=== PATIENT | female | born 1985 | race Caucasian/White ===

== ENCOUNTER 2021-11-21 13:59 | Outpatient (CLI) | payer BC ==
--- NOTE | 2021-11-21 15:17 | Ultrasound Report ---
PROCEDURE: Pelvic w/Transvaginal INDICATIONS: EXTENDED BLEEDING TECHNIQUE: Real-time scanning was performed of the pelvic organs, with image documentation. Additional endovagi nal scanning was necessary due to incomplete visualization of the adnexal and endometrial structures by transabdominal scanning. COMPARISON: None. FINDINGS: Transabdominal scanning: Limited scanning through the kidneys shows no hydronephrosis. No pathologi c free abdominal or pelvic fluid. Endovaginal scanning: Uterus: Uterus is prominent in size at 10.5 x 3.0 x 6.5 cm. The endometrium measures 5 mm in combin ed thickness. No soft tissue abnormalities identified within the endometrial cavity. No areas of abno rmal vascularity. Overall, no findings of retained products of conception. Normal uterine echotexture . Retroverted uterus. Ovaries: Right ovary measures 1.6 x 2.9 x 1.2 cm with ovarian volume of 2.9 mL. Left ovary measures 1.3 x 3.1 x 1.4 cm with ovarian volume of 3.0 mm. No suspicious ovarian or adnexal mass lesions. IMPRESSION: Unremarkable sonographic evaluation of the uterus and bilateral ovaries with findings co mpatible with state. No evidence for retained products of conception. Reviewed by: Julio Coleman MD on 11/21/2021 2:15 PM [facility] Approved by: uJlio Coleman MD on 11/21/2021 2:15 PM [facility] Station ID: [id number]
== END 2021-11-21 14:00 | disposition home or self-care (01) ==
LOC: DI 13:59
PROVIDERS: ATTEND Midwife
DX: O72.0 Third-stage hemorrhage (principal)

== ENCOUNTER 2022-08-27 08:00 | Outpatient (CLI) | payer BC ==
[2022-08-27 16:08] LABS: BASOPHILS % (AUTO) 0.4 %; EOSINOPHILS # (AUTO) 0.1 10^3/uL (0.0-0.7); HCT - HEMATOCRIT 38.3 % (37.0-47.0); HGB - HEMOGLOBIN 12.6 g/dL (12.0-16.0); LYMPHOCYTES # (AUTO) 2.3 10^3/uL (1.5-3.5); MEAN CORPUSCULAR HEMOGLOBIN 28.1 pg (27.0-31.0); MEAN CORPUSCULAR HGB CONC 32.9 g/dL (32.0-36.0); MEAN CORPUSCULAR VOLUME 85.3 fL (81.0-99.0); MEAN PLATELET VOLUME 12.4 fL (7.9-10.8); MONOCYTES # (AUTO) 0.4 10^3/uL (0.0-1.0); MONOCYTES % (AUTO) 6.1 %; NEUTROPHILS # (AUTO) 4.1 10^3/uL (1.5-6.6); NEUTROPHILS % (AUTO) 59.4 %; PLT - PLATELET COUNT 186 10^3/uL (130-450); RED BLOOD COUNT 4.49 10^6/uL (4.20-5.40); WHITE BLOOD COUNT 6.9 x10^3/uL (4.8-10.8)
[2022-08-27 16:28] LABS: ALBUMIN 4.2 g/dL (3.2-5.5); ALBUMIN/GLOBULIN RATIO 1.3 (1.0-2.2); ALKALINE PHOSPHATASE 53 IU/L (42-121); ALT ALANINE AMINOTRANSFERASE 11 IU/L (10-60); AST ASPARTATE AMINOTRANSFERASE 13 IU/L (10-42); BILIRUBIN,TOTAL 0.6 mg/dL (0.2-1.0); BUN - BLOOD UREA NITROGEN 19 mg/dL (6-20); CALCIUM 8.9 mg/dL (8.5-10.3); CARBON DIOXIDE - CO2 23 mmol/L (21-32); CHLORIDE 105 mmol/L (101-111); CHOL/HDL RATIO 3.6 (<4.4); CHOLESTEROL 133 mg/dL; CREATININE 0.8 mg/dL (0.4-1.0); GFR - MDRD 81 (>89); GLUCOSE 81 mg/dL (70-100); HDL CHOLESTEROL 37 mg/dL; LDL CHOLESTEROL,CALCULATED 83 mg/dL; LDL/HDL RATIO 2.2 (<4.4); POTASSIUM 4.1 mmol/L (3.5-5.0); SODIUM 138 mmol/L (135-145); TOTAL PROTEIN 7.5 g/dL (6.7-8.2); TRIGLYCERIDES 66 mg/dL; VLDL CHOLESTEROL 13 mg/dL
[2022-08-27 16:36] LABS: THYROID STIMULATING HORMONE 2.35 uIU/mL (0.34-5.60)
== END 2022-08-27 23:59 | disposition home or self-care (01) ==
LOC: LAB.R 08:00
PROVIDERS: ATTEND Internal Medicine
DX: R68.89 Other general symptoms and signs (principal); R21 Rash and other nonspecific skin eruption; I73.00 Raynaud's syndrome without gangrene
CPT/HCPCS: 36415; 80053; 80061; 81599; 83721; 84443; 85025